=== PATIENT | female | born 1980 | race Caucasian/White ===

== ENCOUNTER 2017-04-12 16:47 | Emergency (ER) | payer MEDICAID, OTHER ==
[~2017-04-12] VITALS: Ht 167.6 cm; Wt 59.1 kg
[2017-04-12 16:48] VITALS: BP 127/89
[2017-04-12] MEDS ORDERED: ADDE30CA3 PO (16:54)
[2017-04-12] MEDS ORDERED: IBUP-1022 PO (16:54)
[2017-04-12] MEDS ORDERED: SUBO8MIS SL (16:54)
[2017-04-12] MEDS ORDERED: LR 1,000 ML IV ONE (17:30)
[2017-04-12] MEDS ORDERED: METOCLOPRAMIDE INJ 10MG/2ML VIAL (J2765) IV ONE (17:30)
[2017-04-12] MEDS ORDERED: cloNIDine HCL 0.2 MG/24 HR PATCH TD ONE (17:30)
[2017-04-12] MEDS ORDERED: BACLOFEN 10 MG TAB PO ONE (17:45)
[2017-04-12 18:11] LABS: MEAN CORPUSCULAR HEMOGLOBIN 30.3 pg (27.0-33.0); MEAN CORPUSCULAR HGB CONC 34.7 g/dl (32.0-36.5); MEAN CORPUSCULAR VOLUME 87.5 fl (80.0-96.0); RED CELL DISTRIBUTION WIDTH 11.9 % (11.5-14.5); WHITE BLOOD COUNT 11.1 K/mm3 (4.0-10.0)
[2017-04-12 18:31] LABS: CONTROL LINE HCG INT CTR LINE PRESENT
[2017-04-12 18:44] LABS: ALBUMIN 4.7 GM/DL (3.2-5.2); ALBUMIN/GLOBULIN RATIO 1.27 (1.00-1.93); ALKALINE PHOSPHATASE 76 U/L (45-117); ALT/SGPT 17 U/L (12-78); ANION GAP 8 MEQ/L (8-16); AST/SGOT 8 U/L (15-37); BILIRUBIN,DIRECT < 0.1 MG/DL (0.0-0.2); BILIRUBIN,TOTAL 0.4 MG/DL (0.2-1.0); BLOOD UREA NITROGEN 10 MG/DL (7-18); CALCIUM LEVEL 9.7 MG/DL (8.5-10.1); CARBON DIOXIDE LEVEL 27 MEQ/L (21-32); CHLORIDE LEVEL 108 MEQ/L (98-107); CREATININE FOR GFR 0.77 MG/DL (0.55-1.02); GLOMERULAR FILTRATION RATE > 60.0 (>60); GLUCOSE, FASTING 85 MG/DL (70-105); POTASSIUM SERUM 3.9 MEQ/L (3.5-5.1); SODIUM LEVEL 143 MEQ/L (136-145); TOTAL PROTEIN 8.4 GM/DL (6.4-8.2)
[2017-04-12 19:43] LABS: FREE T4 0.83 NG/DL (0.76-1.46)
[2017-04-12 20:35] LABS: METHADONE URINE NEGATIVE (NEGATIVE)
[2017-04-12] MEDS ORDERED: REGL10TA6 PO (21:34)
[2017-04-12] MEDS ORDERED: CLON3PA TD (21:34)
--- NOTE | 2017-04-13 08:35 | ECGEPIP ---
Stationary ECG Study 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
[2017-05-27] MEDS ORDERED: HYDR-3363 PO (09:02)
[2017-05-27] MEDS ORDERED: ZITHTAB PO (09:30)
[2017-05-27] MEDS ORDERED: PRED20TA PO (09:32)
== END 2017-04-13 02:09 | disposition home or self-care (01) ==
LOC: M ED 16:47
DX: F11.23 Opioid dependence with withdrawal (principal); F41.9 Anxiety disorder, unspecified; F33.9 Major depressive disorder, recurrent, unspecified; F17.210 Nicotine dependence, cigarettes, uncomplicated; Z79.899 Other long term (current) drug therapy; Z88.8 Allergy status to other drugs, medicaments and biological substances
CPT/HCPCS: 80048; 80076; 80307; 82550; 84439; 84443; 84703; 85027; 93005; 96374; 99284; G0480; J2765

== ENCOUNTER → 2017-07-15 | Outpatient (CLI) | payer OTHER ==
[~2017-07-15] MED LIST: ADDE30CA3 PO; CLON3PA TD; HYDR-3363 PO; IBUP-1022 PO; PRED20TA PO; REGL10TA6 PO; SUBO8MIS SL; ZITHTAB PO
[2017-07-15 18:28] LABS: BASO % 0.4 % (0.0-1.0); EOS # 0.1 10^3/uL (0.0-0.50); EOS % 1.2 % (0.0-3.0); IMMATURE GRANULOCYTE % 0.3 % (0-0); LYMPH # 2.7 10^3/uL (1.5-4.5); LYMPH % 29.7 % (24.0-44.0); MEAN CORPUSCULAR HEMOGLOBIN 29.7 pg (27.0-33.0); MEAN CORPUSCULAR HGB CONC 32.7 g/dl (32.0-36.5); MEAN CORPUSCULAR VOLUME 90.9 fl (80.0-96.0); MONO # 0.5 10^3/uL (0.0-0.8); MONO % 5.5 % (0.0-5.0); NEUTROPHILS # 5.6 10^3/uL (1.8-7.7); NEUTROPHILS % 62.9 % (36.0-66.0); PLATELET COUNT, AUTOMATED 346 10^3/uL (150-450); RED CELL DISTRIBUTION WIDTH 11.9 % (11.5-14.5); WHITE BLOOD COUNT 8.9 10^3/uL (4.0-10.0)
[2017-07-15 18:29] LABS: INR 1.02
[2017-07-15 19:15] LABS: ALBUMIN 4.4 GM/DL (3.2-5.2); ALBUMIN/GLOBULIN RATIO 1.38 (1.00-1.93); ALKALINE PHOSPHATASE 65 U/L (45-117); ALT/SGPT 21 U/L (12-78); ANION GAP 5 MEQ/L (8-16); AST/SGOT 17 U/L (7-37); BILIRUBIN,TOTAL 0.3 MG/DL (0.2-1.0); BLOOD UREA NITROGEN 13 MG/DL (7-18); CALCIUM LEVEL 9.2 MG/DL (8.5-10.1); CARBON DIOXIDE LEVEL 28 MEQ/L (21-32); CHLORIDE LEVEL 109 MEQ/L (98-107); CHOLESTEROL LEVEL 166 MG/DL (<200); CREATININE FOR GFR 0.74 MG/DL (0.55-1.02); FREE T4 0.87 NG/DL (0.76-1.46); GLOMERULAR FILTRATION RATE > 60.0 (>60); GLUCOSE, FASTING 77 MG/DL (70-105); POTASSIUM SERUM 4.4 MEQ/L (3.5-5.1); SODIUM LEVEL 142 MEQ/L (136-145); TOTAL PROTEIN 7.6 GM/DL (6.4-8.2); TRIGLYCERIDES LEVEL 62 MG/DL (<150)
[2017-07-15 19:30] LABS: ERYTHROCYTE SEDIMENTATION RATE 3 mm/hr (0-20)
== END ==
LOC: M LAB 17:12
PROVIDERS: ATTEND Nurse Practitioner Family
DX: N92.6 Irregular menstruation, unspecified (principal); M25.50 Pain in unspecified joint; M32.9 Systemic lupus erythematosus, unspecified

== ENCOUNTER → 2017-07-15 | Outpatient (REF) | payer OTHER | LOC: M SFHCPLAZ 16:23 | DX: M25.50 Pain in unspecified joint (principal); M32.9 Systemic lupus erythematosus, unspecified; N92.6 Irregular menstruation, unspecified; Z00.00 Encounter for general adult medical examination without abnormal findings; Z13.220 Encounter for screening for lipoid disorders ==

== ENCOUNTER → 2018-01-27 | Outpatient (REF) | payer OTHER ==
[2018-01-27 16:54] LABS: CHLAMYDIA DNA AMPLIFICATION NEGATIVE (NEGATIVE); GC DNA AMPLIFICATION NEGATIVE (NEGATIVE)
[2018-01-29 16:20] LABS: HPV HYBRID CAPTURE II Negative (Negative)
== END ==
LOC: M SFHCWAGY 13:26
DX: Z12.4 Encounter for screening for malignant neoplasm of cervix (principal); Z11.3 Encounter for screening for infections with a predominantly sexual mode of transmission
CPT/HCPCS: 87591

== ENCOUNTER 2018-04-18 06:55 | Emergency (ER) | payer OTHER ==
[2018-04-18] MEDS: EXPOSURE KIT-ADULT 7 DAY SUPPLY PO (07:30)
[2018-04-18 07:32] LABS: BASO % 0.4 % (0.0-1.0); EOS # 0.1 10^3/uL (0.0-0.50); EOS % 1.5 % (0.0-3.0); HEMATOCRIT 43.1 % (36.0-47.0); HEMOGLOBIN 14.2 g/dl (12.0-15.5); IMMATURE GRANULOCYTE % 0.3 % (0-3.0); LYMPH # 2.6 10^3/uL (1.5-4.5); MEAN CORPUSCULAR HEMOGLOBIN 29.5 pg (27.0-33.0); MEAN CORPUSCULAR HGB CONC 32.9 g/dl (32.0-36.5); MEAN CORPUSCULAR VOLUME 89.4 fl (80.0-96.0); MONO # 0.6 10^3/uL (0.0-0.8); MONO % 6.5 % (0.0-5.0); NEUTROPHILS # 5.9 10^3/uL (1.8-7.7); NEUTROPHILS % 63.3 % (36.0-66.0); PLATELET COUNT, AUTOMATED 335 10^3/uL (150-450); RED BLOOD COUNT 4.82 10^6/uL (4.00-5.40); RED CELL DISTRIBUTION WIDTH 12.3 % (11.5-14.5); WHITE BLOOD COUNT 9.3 10^3/uL (4.0-10.0)
[2018-04-18] MEDS: METOCLOPRAMIDE 10 MG TAB PO (07:41)
[2018-04-18] MEDS: ADACEL/BOOSTRIX VACCINE (DIPHTH/PERTUSS/ACELL/TETANUS)0.5ML SYR (90715) IM (07:46)
[2018-04-18 07:50] LABS: CONTROL LINE HCG INT CTR LINE PRESENT; HCG, SERUM QUALITATIVE NEGATIVE (NEGATIVE)
[2018-04-18 07:58] LABS: ALBUMIN 4.3 GM/DL (3.2-5.2); ALBUMIN/GLOBULIN RATIO 1.48 (1.00-1.93); ALKALINE PHOSPHATASE 55 U/L (45-117); ALT/SGPT 26 U/L (12-78); ANION GAP 11 MEQ/L (8-16); AST/SGOT 12 U/L (7-37); BILIRUBIN,TOTAL 0.5 MG/DL (0.2-1.0); BLOOD UREA NITROGEN 15 MG/DL (7-18); CALCIUM LEVEL 9.2 MG/DL (8.5-10.1); CARBON DIOXIDE LEVEL 21 MEQ/L (21-32); CHLORIDE LEVEL 108 MEQ/L (98-107); CREATININE FOR GFR 0.72 MG/DL (0.55-1.30); GLOMERULAR FILTRATION RATE > 60.0 (>60); GLUCOSE, FASTING 113 MG/DL (70-100); POTASSIUM SERUM 4.2 MEQ/L (3.5-5.1); SODIUM LEVEL 140 MEQ/L (136-145); TOTAL PROTEIN 7.2 GM/DL (6.4-8.2)
[2018-04-19 10:26] LABS: HEPATITIS B SURFACE ANTIBODY POSITIVE (POSITIVE)
[2018-04-19 11:05] LABS: HEPATITIS C VIRUS ABY INDEX 0.1 INDEX (<0.8)
[2018-04-19 12:49] LABS: HIV SCREEN CENTAUR EXPOSED NEGATIVE (NEGATIVE)
[2018-04-19 13:48] LABS: HEPATITIS B SURFACE ANTIGEN NEGATIVE (NEGATIVE)
== END 2018-04-18 08:15 | disposition home or self-care (01) ==
LOC: M ED 06:55
DX: S69.92XA Unspecified injury of left wrist, hand and finger(s), initial encounter (principal); W46.1XXA Contact with contaminated hypodermic needle, initial encounter; Y92.524 Gas station as the place of occurrence of the external cause; F98.8 Other specified behavioral and emotional disorders with onset usually occurring in childhood and adolescence; F19.10 Other psychoactive substance abuse, uncomplicated; Z88.1 Allergy status to other antibiotic agents; Z79.899 Other long term (current) drug therapy
CPT/HCPCS: 90715

== ENCOUNTER → 2018-05-24 | Outpatient (REF) | payer OTHER ==
[2018-05-24 14:54] LABS: HEPATITIS A ANTIBODY IGM NEGATIVE (NEGATIVE); HEPATITIS B CORE ANTIBODY IGM NEGATIVE (NEGATIVE); HEPATITIS B SURFACE ANTIGEN NEGATIVE (NEGATIVE); HIV 1&2 SCREEN CENTAUR NEGATIVE (NEGATIVE)
== END ==
LOC: M SFHCPLAZ 11:49
DX: Z77.21 Contact with and (suspected) exposure to potentially hazardous body fluids (principal)

== ENCOUNTER 2018-06-19 00:24 | Emergency (ER) | payer OTHER ==
[2018-06-19] MEDS: DERMABOND TOPICAL SKIN ADHESIVE TOP (01:01)
== END 2018-06-19 01:18 | disposition home or self-care (01) ==
LOC: M ED 00:24
DX: S61.122A Laceration with foreign body of left thumb with damage to nail, initial encounter (principal); W25.XXXA Contact with sharp glass, initial encounter; Y92.89 Other specified places as the place of occurrence of the external cause; Y99.0 Civilian activity done for income or pay; F17.210 Nicotine dependence, cigarettes, uncomplicated; F98.8 Other specified behavioral and emotional disorders with onset usually occurring in childhood and adolescence; Z88.1 Allergy status to other antibiotic agents
CPT/HCPCS: 12001

== ENCOUNTER → 2018-10-05 | Outpatient (REF) | payer OTHER ==
[~2018-10-05] MED LIST changes: +CHAN1PAK11 PO; +CLON0.3D8 TD; -CLON3PA TD; +RALT40TA PO; +TRUVTAB PO
== END ==
LOC: M SFHCPLAZ 15:47
PROVIDERS: ATTEND Nurse Practitioner Family
DX: Z77.21 Contact with and (suspected) exposure to potentially hazardous body fluids (principal)

== ENCOUNTER → 2019-02-17 | Outpatient (CLI) | payer MEDICAID, OTHER ==
[~2019-02-17] MED LIST changes: +METAL LOCK LOOP XX ONE
--- NOTE | 2019-02-17 08:26 | REP ---
Clinical: Dating and viability. Technique: Transabdominal first trimester obstetrical ultrasound with color Doppler evaluation. Findings: Single live early intrauterine identified. Gestational sac with yolk sac and pole noted. CRL of 3.1 cm corresponds to 10 weeks 0 days gestational age with estimated date of delivery 09/15/2019. heart rate equals 164 beats per minute. No gross abnormalities are identified. Maternal ovaries are normal and a left corpus luteal cyst is appreciated. No significant pelvic free fluid. Impression: Single live early intrauterine at 10 weeks 0 days gestational age. Complete anatomical assessment should be performed at 19-20 weeks. Electronically Signed by Kang Winchester MD 02/17/2019 08:17 A
== END ==
LOC: M RAD 06:56
PROVIDERS: ATTEND Nurse Practitioner Family
DX: Z32.01 Encounter for pregnancy test, result positive (principal)

== ENCOUNTER → 2019-03-15 | Outpatient (REF) | payer MEDICAID ==
[~2019-03-15] MED LIST changes: -METAL LOCK LOOP XX ONE
[2019-03-15 17:48] LABS: HEMATOCRIT 39.2 % (36.0-47.0); HEMOGLOBIN 13.4 g/dl (12.0-15.5); MEAN CORPUSCULAR HEMOGLOBIN 31.4 pg (27.0-33.0); MEAN CORPUSCULAR HGB CONC 34.2 g/dl (32.0-36.5); MEAN CORPUSCULAR VOLUME 91.8 fl (80.0-96.0); PLATELET COUNT, AUTOMATED 269 10^3/uL (150-450); RED BLOOD COUNT 4.27 10^6/uL (4.00-5.40); WHITE BLOOD COUNT 10.4 10^3/uL (4.0-10.0)
[2019-03-16 09:58] LABS: HEPATITIS C VIRUS ABY INDEX < 0.0 INDEX (<0.8); HIV 1&2 SCREEN CENTAUR NEGATIVE (NEGATIVE); RUBELLA IgG QUALITATIVE IMMUNE (IMMUNE)
== END ==
LOC: M LAB REF 17:09
PROVIDERS: ATTEND Nurse Practitioner Women's Health
DX: O36.80X0 Pregnancy with inconclusive fetal viability, not applicable or unspecified (principal); Z32.01 Encounter for pregnancy test, result positive

== ENCOUNTER 2019-04-22 08:09 | Emergency (ER) | payer MEDICAID, OTHER ==
[~2019-04-22] VITALS: Ht 167.6 cm; Wt 75.1 kg
[2019-04-22] MEDS ORDERED: PREN29TA4 PO (08:15)
--- NOTE | 2019-04-22 10:30 | REP ---
Left lower extremity Duplex Doppler venous ultrasound: Real time compression and duplex Doppler interrogation of the left lower extremity deep venous system is performed. The left common femoral, superficial femoral and popliteal veins are fully compressible with transducer pressure and demonstrate normal spontaneous and phasic flow, without evidence of deep venous thrombosis. Impression: No evidence of deep venous thrombosis of the left lower extremity femoral popliteal venous system. Electronically Signed by Amadou Walters MD 04/22/2019 10:21 A
--- NOTE | 2019-04-22 11:28 | REP ---
REASON: Knee pain. COMPARISON: None. Only two views were obtained. A two view examination cannot rule out a fracture. Two limited views of the left knee show evidence of a fracture. Electronically Signed by Ant Medina DO 04/22/2019 11:40 A
[2019-04-22 12:00] VITALS: BP 109/56
== END 2019-04-22 12:03 | disposition home or self-care (01) ==
LOC: M ED 08:09
DX: M25.562 Pain in left knee (principal); Z88.8 Allergy status to other drugs, medicaments and biological substances

== ENCOUNTER → 2019-04-29 | Outpatient (CLI) | payer MEDICAID, OTHER ==
[~2019-04-29] MED LIST changes: +PREN29TA4 PO
--- NOTE | 2019-04-29 09:38 | REP ---
Obstetric ultrasound for anatomy: There is a single intrauterine gestation in a vertex presentation. There is movement and cardiac activity. The heart rate is 147 beats minute. The placenta is anterior without previa or abruptio. The placenta is grade 1. The amniotic fluid volume subjectively is normal. The cervix measures 3.3 cm length. By today's ultrasound the gestational age is 19-week 6 days/DEEP 09/17/2019. By the first ultrasound gestational age is 20 weeks 1 day/DEEP 09/15/2019. By LMP gestational age is 20 weeks 1 day/DEEP 09/15/2019. weight is 307 grams/0 pounds, 10 ounces. This is the 33rd percentile for 20 weeks 1 day. The following anatomic structures are identified and are unremarkable: Cranium, choroid plexus, cavum septum pellucidum, cerebellum, facial profile, upper lip, lungs, four-chamber heart, cardiac right and left ventricular outflow tracts, diaphragm, stomach, cord insertion, three-vessel cord, kidneys, bladder and upper lower extremities. Suboptimally demonstrated because of position is the spine. A followup study dedicated to the spine might be considered. Otherwise, there are no anomalies. Electronically Signed by Amadou Jimenez MD 04/29/2019 09:31 A
== END ==
LOC: M RAD 08:27
PROVIDERS: ATTEND Nurse Practitioner Women's Health
DX: Z34.82 Encounter for supervision of other normal pregnancy, second trimester (principal)

== ENCOUNTER → 2019-05-30 | Outpatient (CLI) | payer OTHER ==
--- NOTE | 2019-05-31 06:22 | REP ---
Clinical: Anatomical evaluation. Comparison: 04/29/2019 . Findings: Examination demonstrates a single live intrauterine in cephalic presentation. motion is identified by technologist. Placenta is noted anterior and grade I without evidence for placenta previa or abruption. Amniotic fluid volume is normal. Cervix measures 3.5 cm in length and appears closed. Nuchal cord cannot be excluded. Gestational age by LMP 24 weeks 4 days with DEEP 09/15/2019 . Gestational age by current measurements 23 weeks 6 days with DEEP 09/20/2019 . FHR equals 136 beats per minute. Estimated weight 601 grams ( 15th percentile). Anatomical assessment demonstrates normal structures including cranium, choroid plexus, cavum, cerebellum/posterior fossa, facial features, lungs, four-chamber heart/ventricular outflow tracts, diaphragm, stomach, cord insertion/three-vessel cord, kidneys/bladder, spine, and extremities. Impression: Single live intrauterine in cephalic presentation demonstrating appropriate interval growth. 2. Nuchal cord cannot be excluded. 3. Anatomical assessment is complete and normal. No gross abnormalities are identified. Electronically Signed by Kang Winchester MD 05/31/2019 06:15 A
== END ==
LOC: M RAD 08:31
PROVIDERS: ATTEND Nurse Practitioner Women's Health
DX: O09.522 Supervision of elderly multigravida, second trimester (principal)

== ENCOUNTER → 2019-06-24 | Outpatient (CLI) | payer OTHER ==
[2019-06-24 09:54] LABS: HEMATOCRIT 34.4 % (36.0-47.0); HEMOGLOBIN 11.2 g/dl (12.0-15.5); MEAN CORPUSCULAR HEMOGLOBIN 29.4 pg (27.0-33.0); MEAN CORPUSCULAR HGB CONC 32.6 g/dl (32.0-36.5); MEAN CORPUSCULAR VOLUME 90.3 fl (80.0-96.0); PLATELET COUNT, AUTOMATED 279 10^3/uL (150-450); RED BLOOD COUNT 3.81 10^6/uL (4.00-5.40); WHITE BLOOD COUNT 10.8 10^3/uL (4.0-10.0)
== END ==
LOC: M LAB 07:50
PROVIDERS: ATTEND Nurse Practitioner Women's Health
DX: Z34.82 Encounter for supervision of other normal pregnancy, second trimester (principal)

== ENCOUNTER → 2019-06-30 | Outpatient (CLI) | payer OTHER | LOC: M LAB 07:51 | PROVIDERS: ATTEND Nurse Practitioner Women's Health | DX: R73.02 Impaired glucose tolerance (oral) (principal) ==

== ENCOUNTER 2019-07-13 09:13 | Outpatient (CLI) | payer OTHER ==
[~2019-07-13] VITALS: Ht 167.6 cm; Wt 80.8 kg
[2019-07-13 09:31] VITALS: BP 115/71
[2019-07-13 13:25] VITALS: BP 114/71
== END 2019-07-13 13:55 | disposition home or self-care (01) ==
LOC: M LDO 09:13
PROVIDERS: ATTEND Obstetrics & Gynecology
DX: O26.853 Spotting complicating pregnancy, third trimester (principal); Z3A.30 30 weeks gestation of pregnancy

== ENCOUNTER → 2019-08-18 | Outpatient (REF) | payer OTHER | LOC: M LAB REF 12:54 | PROVIDERS: ATTEND Obstetrics & Gynecology | DX: O09.523 Supervision of elderly multigravida, third trimester (principal); Z3A.00 Weeks of gestation of pregnancy not specified ==

== ENCOUNTER 2019-09-20 20:15 | Inpatient (IN) | payer OTHER ==
[~2019-09-20] VITALS: Ht 167.6 cm; Wt 86.2 kg
[2019-09-20 20:43] VITALS: BP 132/82
[2019-09-20] MEDS ORDERED: LR 1,000 ML IV SCH (21:02)
[2019-09-20] MEDS ORDERED: LACTATED RINGER'S 1000 ML IV STA (21:02)
[2019-09-20] MEDS ORDERED: NS 1,000 ML IV SCH (21:02)
[2019-09-20 21:15] LABS: HEMATOCRIT 40.4 % (36.0-47.0); HEMOGLOBIN 13.4 g/dl (12.0-15.5); MEAN CORPUSCULAR HEMOGLOBIN 28.9 pg (27.0-33.0); MEAN CORPUSCULAR HGB CONC 33.2 g/dl (32.0-36.5); MEAN CORPUSCULAR VOLUME 87.1 fl (80.0-96.0); PLATELET COUNT, AUTOMATED 270 10^3/uL (150-450); RED BLOOD COUNT 4.64 10^6/uL (4.00-5.40); WHITE BLOOD COUNT 17.5 10^3/uL (4.0-10.0)
[2019-09-20] MEDS ORDERED: FENTANYL 2MCG/ML ROPIVACAINE 0.2% IN 0.9% NACL 100ML IVBAG As Ordered ONE (22:36)
[2019-09-20] MEDS ORDERED: REFRIGERATOR IV KEYS XX PRN (23:30)
[2019-09-20] MEDS ORDERED: LACTATED RINGER'S 1000 ML IV PRN (23:30)
[2019-09-20] MEDS ORDERED: ePHEDrine SULFATE 25 MG/5 ML(5MG/ML) SYRINGE IV PRN (23:30)
[2019-09-20] MEDS ORDERED: FENTANYL/ROPIVACAINE/NACL BAG 100 ML EPIDURAL SCH (23:30)
[2019-09-20] MEDS ORDERED: EPIDURAL/PCA KEYS XX PRN (23:30)
[2019-09-20] MEDS ORDERED: EPIDURAL COMMENT XX SCH (23:30)
[2019-09-20] MEDS ORDERED: ONDANSETRON 4MG/2ML VIAL (J2405) IV PRN (23:30)
[2019-09-20] MEDS ORDERED: NALOXONE INJ 0.4 MG/1 ML VIAL (J2310) IV PRN (23:30)
[2019-09-20] MEDS ORDERED: diphenhydrAMINE INJ 50MG/ML VIAL (J1200) IV PRN (23:30)
[2019-09-20] MEDS ORDERED: OXYTOCIN 30 UNITS IN 0.9% NaCl 500ML IV BAG (J2590) As Ordered ONE (23:42)
[2019-09-21 01:25] LABS: CORD GAS O2 SAT V 61.2 %; CORD GAS PCO2 V 45.4 mmHg; CORD GAS PH V 7.192 UNITS; CORD GAS SBC V 15.3 MEQ/L; CORD GAS TCO2 V 18.4 MEQ/L
[2019-09-21 01:28] LABS: CORD GAS ABE A -10.9; CORD GAS HCO3 A 18.2 MEQ/L; CORD GAS O2 SAT A 35.7 %; CORD GAS PCO2 A 52.9 mmHg; CORD GAS PH A 7.155 UNITS; CORD GAS PO2 A 19.1 mmHg; CORD GAS SBC A 14.7 MEQ/L; CORD GAS TCO2 A 19.8 MEQ/L
[2019-09-21] MEDS ORDERED: OXYTOCIN DRIP 30 UNITS in IV 1 EA IV SCH (01:28)
[2019-09-21] MEDS ORDERED: RHOGAM 300 MCG (1500 IU) INJ (J2790) IM SCH (01:30)
[2019-09-21] MEDS ORDERED: METHYLERGONOVINE MALEATE 0.2 MG TAB PO PRN (01:30)
[2019-09-21] MEDS ORDERED: ACETAMINOPHEN TAB 650MG DOSE (2X325MG) PO PRN (01:30)
[2019-09-21] MEDS ORDERED: IBUPROFEN 600 MG TAB PO PRN (01:30)
[2019-09-21] MEDS ORDERED: DIBUCAINE 1% OINTMENT 30GM TOP PRN (01:30)
[2019-09-21] MEDS ORDERED: ANUSOL HC CREAM 30GM TOP PRN (01:30)
[2019-09-21] MEDS ORDERED: MEASLES,MUMPS,RUBELLA VACCINE INJ (MMR-II) (90707) SC SCH (01:30)
[2019-09-21 03:53] VITALS: BP 116/62
[2019-09-21] MEDS: IBUPROFEN 800 MG TAB PO PRN ×3 (04:36→22:29)
[2019-09-21] MEDS: PRENATAL VITAMINS CHEWABLE TABLET PO SCH (08:09)
[2019-09-21] MEDS: DOCUSATE SODIUM 100 MG CAP PO SCH ×2 (08:09→20:46)
[2019-09-21] MEDS: ACETAMINOPHEN 500 MG TAB PO PRN ×2 (08:10→17:28)
--- NOTE | 2019-09-21 14:29 | HPE ---
DATE OF ADMISSION: 09/20/2019 Zulma is a 38-year-old female 3, para 1-0-1-1 with an EDC of 09/15/2019, EGA 40-6/7 weeks gestation who is admitted to labor and delivery after coming in with complaint of contractions every 3-4 minutes and vaginal bleeding. On evaluation she was found to be 4 cm dilated with a significant bloody show on the perineum. The cervix was 4 cm, 80%, fetus at -2 station. At this point a decision was made for admission. Her record reviewed which was essentially unremarkable. lab - blood type is B negative, rubella immune, hepatitis negative, HIV negative, GC and chlamydia negative, 1-hour sugar testing was within normal limits. Her GBS is negative. PAST MEDICAL HISTORY: Denies. PAST SURGICAL HISTORY: Left foot surgery. Bowel obstruction in 2005. [place] tooth extraction. SOCIAL HISTORY: Denies any alcohol or drug. She does smoke approximately 10 cigarettes per day. REVIEW OF SYSTEMS: Unremarkable. FAMILY HISTORY: Significant for lupus. MEDICATIONS: vitamin. ALLERGIES: CECLOR. ASSESSMENT: Intrauterine at 40-6/7 weeks gestation in labor. PLAN: Admit to labor and delivery. Routine labs sent. Pain management discussed which she opted for an epidural. We will continue to monitor. Anticipate delivery.
[2019-09-21 17:55] VITALS: BP 118/65
--- NOTE | 2019-09-21 18:28 | DN ---
DATE: 09/21/2019 Preethi is a 38-year-old female, 3, para 1-0-1-1 with an estimated gestational age of (EGA) of 40-5/7 weeks gestation who presented to labor and delivery in labor. She was progressed to fully dilated and delivered with pushing with deep deceleration down to 70-80 beats per minute. She then delivered a live male in occiput posterior position with a tight nuchal cord times one and terminal meconium. scores 7 and 9. weight 5 pounds 4 ounces. Placenta delivered spontaneously intact. Three-vessel cord. Perineum, vagina, and cervix inspected. Second-degree midline perineal laceration noted, which was repaired using 2-0 chromic. Estimated blood loss 300 mL. Both mother and baby in stable condition.
[2019-09-22] MEDS: ACETAMINOPHEN 500 MG TAB PO PRN (03:11)
[2019-09-22 05:38] VITALS: BP 108/60
[2019-09-22] MEDS: DOCUSATE SODIUM 100 MG CAP PO SCH ×2 (09:48→19:55)
[2019-09-22] MEDS: PRENATAL VITAMINS CHEWABLE TABLET PO SCH (09:48)
[2019-09-22] MEDS: IBUPROFEN 800 MG TAB PO PRN (09:49)
[2019-09-22 18:30] VITALS: BP 126/86
[2019-09-23] MEDS: ACETAMINOPHEN 500 MG TAB PO PRN (00:35)
[2019-09-23] MEDS: IBUPROFEN 800 MG TAB PO PRN (04:19)
[2019-09-23 06:09] VITALS: BP 116/74
[2019-09-23] MEDS: PRENATAL VITAMINS CHEWABLE TABLET PO SCH (08:23)
[2019-09-23] MEDS: DOCUSATE SODIUM 100 MG CAP PO SCH (08:23)
== END 2019-09-23 12:02 | disposition home or self-care (01) | DRG 560 ==
LOC: M LDO 20:15 → M LDI 21:03 → M OBS 09-21 03:47
PROVIDERS: ADMIT Obstetrics & Gynecology; ATTEND Obstetrics & Gynecology
PROC: 10E0XZZ Delivery of Products of Conception, External Approach (ICD-10-PCS; principal; 2019-09-21)
PROC: 0KQM0ZZ Repair Perineum Muscle, Open Approach (ICD-10-PCS; 2019-09-21)
DX: O48.0 Post-term pregnancy (principal); F17.210 Nicotine dependence, cigarettes, uncomplicated; Z3A.40 40 weeks gestation of pregnancy; O99.334 Smoking (tobacco) complicating childbirth; O76 Abnormality in fetal heart rate and rhythm complicating labor and delivery; O70.1 Second degree perineal laceration during delivery; Z37.0 Single live birth; O69.1XX0 Labor and delivery complicated by cord around neck, with compression, not applicable or unspecified; O77.0 Labor and delivery complicated by meconium in amniotic fluid

== ENCOUNTER 2021-01-06 10:47 | Emergency (ER) | payer OTHER ==
[~2021-01-06] VITALS: Ht 167.6 cm; Wt 69.1 kg
[~2021-01-06 10:47] MED LIST changes: -ZOFR4TAB16 PO
[2021-01-06] MEDS ORDERED: ONDANSETRON 4 MG ORAL DISINTEGRATING TAB PO ONE (12:00)
[2021-01-06] MEDS ORDERED: NS 1,000 ML IV SCH (12:00)
--- NOTE | 2021-01-06 12:38 | REP ---
INDICATION: EPISODIC ABDOMINAL CRAMPING. FINDINGS: Multiple ultrasonographic images of the liver show the hepatic parenchymal echo texture to appear unremarkable. There are no focal masses. There is no intrahepatic ductal dilatation. The common bile duct measures approximately 5 mm in its greatest transverse dimension. Multiple ultrasonographic images of the gallbladder show no focal or diffuse gallbladder wall thickening. There are no echogenic foci within the gallbladder lumen, which casts acoustic shadows. There is no pericholecystic edema. Images of the pancreatic region show no gross abnormality. The imaged portion of the right kidney is unremarkable. IMPRESSION: Unremarkable right upper quadrant ultrasound. Accredited by the [employer] in General Ultrasound. <Electronically signed by Ant Medina > 01/06/21 [id number]
[2021-01-06 13:08] LABS: BASO % 0.5 % (0.0-1.0); EOS % 0.5 % (0.0-3.0); HEMATOCRIT 42.6 % (36.0-47.0); HEMOGLOBIN 14.3 g/dl (12.0-15.5); LYMPH # 2.3 10^3/uL (1.5-5.0); LYMPH % 26.5 % (24.0-44.0); MEAN CORPUSCULAR HEMOGLOBIN 30.6 pg (27.0-33.0); MEAN CORPUSCULAR HGB CONC 33.6 g/dl (32.0-36.5); MONO # 0.6 10^3/uL (0.0-0.8); MONO % 6.5 % (2.0-8.0); NEUTROPHILS # 5.7 10^3/uL (1.5-8.5); NEUTROPHILS % 65.7 % (36.0-66.0); PLATELET COUNT, AUTOMATED 303 10^3/uL (150-450); RED BLOOD COUNT 4.68 10^6/uL (4.00-5.40); WHITE BLOOD COUNT 8.6 10^3/uL (4.0-10.0)
[2021-01-06 13:45] LABS: BILIRUBIN,DIRECT 0.2 MG/DL (0.0-0.2); BILIRUBIN,TOTAL 0.6 MG/DL (0.2-1.0); TOTAL PROTEIN 7.3 GM/DL (6.4-8.2)
[2021-01-06] MEDS ORDERED: ISOVUE-370 76% 100ML VIAL As Ordered ONE (14:16)
--- NOTE | 2021-01-06 14:44 | ECGEPIP ---
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
--- NOTE | 2021-01-06 14:53 | REP ---
INDICATION: GENERALIZED PAIN, BILIOUS EMESIS, R/O OBSTRUCTION, COLITIS. COMPARISON: 05/29/2016 a noncontrast enhanced exam TECHNIQUE: Standard helical technique after the intravenous administration of 100 cc Isovue 370. no oral bowel preparatory contrast was administered prior to the exam. FINDINGS: The lung bases are clear and unchanged. The liver, gallbladder, spleen, pancreas, adrenal glands, and kidneys are unchanged. There is a small simple left renal cyst in the superior pole which appears stable. The abdominal aorta and para-aortic regions are again seen to be within normal limits. There is no free fluid or free air. The bowel loops and the mesenteries are within normal limits although seen in limited fashion without oral bowel preparatory contrast administration. There is no free fluid or free air. There is no mass or adenopathy. Bone window technique throughout the examination shows no significant change in the imaged osseous structures. There are within normal limits IMPRESSION: Simple a essentially unchanged left renal cyst. The examination is otherwise unremarkable. <Electronically signed by Ant Medina > 01/06/21 [id number]
[2021-01-06] MEDS ORDERED: METOCLOPRAMIDE 5 MG TAB PO ONE (16:05)
[2021-01-06 16:28] LABS: CHLAMYDIA DNA AMPLIFICATION NEGATIVE (NEGATIVE); GC DNA AMPLIFICATION NEGATIVE (NEGATIVE)
[2021-01-06] MEDS ORDERED: ZOFR4TAB16 PO (16:28)
[2021-01-06 16:52] VITALS: BP 138/78
== END 2021-01-06 16:50 | disposition home or self-care (01) ==
LOC: M ED 10:47
DX: R11.10 Vomiting, unspecified (principal); R19.7 Diarrhea, unspecified; R31.21 Asymptomatic microscopic hematuria; N28.1 Cyst of kidney, acquired; Z88.8 Allergy status to other drugs, medicaments and biological substances
CPT/HCPCS: 74177; 76705; 80047; 80076; 81001; 83605; 83690; 84702; 85025; 87661; 93005; 96360; 96361; 99284; Q0162; Q9967

== ENCOUNTER → 2021-01-06 | Outpatient (REF) | payer OTHER ==
[~2021-01-06] MED LIST changes: +EMTR1TAB16 PO; -TRUVTAB PO; +ZOFR4TAB16 PO
== END ==
LOC: M LAB REF 09:35
PROVIDERS: ATTEND Physician Assistant
DX: R19.7 Diarrhea, unspecified (principal)

== ENCOUNTER → 2022-01-28 | Outpatient (REF) | payer OTHER ==
[~2022-01-28] MED LIST changes: +ZOFR4TAB16 PO
== END ==
LOC: M SFHCDERM 14:20
PROVIDERS: ATTEND Dermatology
DX: L98.6 Other infiltrative disorders of the skin and subcutaneous tissue (principal)

== ENCOUNTER → 2022-02-05 | Outpatient (CLI) | payer OTHER | LOC: M LAB 10:11 | PROVIDERS: ATTEND Dermatology | DX: R21 Rash and other nonspecific skin eruption (principal) ==

== ENCOUNTER 2023-01-08 21:40 | Emergency (ER) | payer OTHER ==
[~2023-01-08] VITALS: Ht 167.6 cm; Wt 76.6 kg
[2023-01-08 21:41] VITALS: TEMP 97.5
[2023-01-08 22:19] LABS: BASO # 0.1 10^3/uL (0.0-0.2); BASO % 0.7 % (0.0-1.0); EOS # 0.2 10^3/uL (0.0-0.5); EOS % 2.1 % (0.0-3.0); HEMATOCRIT 37.9 % (36.0-47.0); HEMOGLOBIN 12.9 g/dl (12.0-15.5); LYMPH # 3.3 10^3/uL (1.5-5.0); LYMPH % 43.4 % (24.0-44.0); MEAN CORPUSCULAR HEMOGLOBIN 30.5 pg (27.0-33.0); MEAN CORPUSCULAR VOLUME 89.6 fl (80.0-96.0); MONO # 0.3 10^3/uL (0.0-0.8); MONO % 4.3 % (2.0-8.0); NEUTROPHILS # 3.7 10^3/uL (1.5-8.5); NEUTROPHILS % 48.7 % (36.0-66.0); PLATELET COUNT, AUTOMATED 297 10^3/uL (150-450); RED BLOOD COUNT 4.23 10^6/uL (4.00-5.40); WHITE BLOOD COUNT 7.6 10^3/uL (4.0-10.0)
[2023-01-08 22:29] LABS: INR 0.87
[2023-01-08 22:54] LABS: LIPASE 35 U/L (12-53)
[2023-01-08 22:56] LABS: ALBUMIN 3.7 G/DL (3.2-5.2); ALKALINE PHOSPHATASE 60 U/L (46-116); ALT/SGPT 17 U/L (7.0-40); AST/SGOT 13 U/L (<34); BILIRUBIN,DIRECT < 0.1 MG/DL (<0.4); BILIRUBIN,TOTAL 0.3 MG/DL (0.3-1.2); BLOOD UREA NITROGEN 9 MG/DL (9-23); CALCIUM LEVEL 8.8 MG/DL (8.5-10.1); CARBON DIOXIDE LEVEL 24 MMOL/L (20-31); CHLORIDE LEVEL 109 MMOL/L (98-107); CK-MB VALUE MASS < 1.0 NG/ML (<3.6); CREATININE FOR GFR 0.71 MG/DL (0.55-1.30); GLOMERULAR FILTRATION RATE > 60.0 (>58); GLUCOSE, FASTING 97 MG/DL (60-100); POTASSIUM SERUM 3.6 MMOL/L (3.5-5.1); SODIUM LEVEL 140 MMOL/L (136-145); TOTAL PROTEIN 6.4 G/DL (5.7-8.2)
[2023-01-08 22:58] LABS: THYROID STIMULATING HORMONE 3.365 uIU/ML (0.55-4.78)
[2023-01-08 23:00] LABS: CPK CREATINE PHOSPHOKINASE 104 U/L (34-145); MB/CK RELATIVE INDEX 0.96 (< OR =4)
[2023-01-08 23:12] LABS: HCG, SERUM QUALITATIVE NEGATIVE (NEGATIVE)
[2023-01-08] MEDS ORDERED: ISOVUE-370 76% 100ML VIAL As Ordered ONE (23:42)
[2023-01-09 00:55] VITALS: BP 137/78; O2SAT 98
[2023-01-09] MEDS ORDERED: LIDOCAINE 5% (LIDODERM) PATCH TD ONE (01:10)
[2023-01-09] MEDS ORDERED: KETOROLAC 30 MG/ML 1ML VIAL IV ONE (01:10)
[2023-01-09] MEDS ORDERED: LIDO5DIS41 TD (02:50)
== END 2023-01-09 03:12 | disposition home or self-care (01) ==
LOC: M ED 21:40
DX: R07.89 Other chest pain (principal); R07.1 Chest pain on breathing; R10.12 Left upper quadrant pain; Z88.1 Allergy status to other antibiotic agents
CPT/HCPCS: 71045; 71275; 80048; 80076; 81001; 82550; 82553; 83690; 83880; 84443; 84703; 85025; 85610; 93005; 93041; 94760; 96374; 99285; J1885; Q9967